=== PATIENT | male | born 2000 | race African-American/Black ===

== ENCOUNTER 2023-02-24 09:32 | Emergency (ER) | payer SELFPAY ==
[~2023-02-24] VITALS: Ht 180.3 cm; Wt 76.3 kg
[2023-02-24 09:33] VITALS: BP 147/93; PULSE 63; RESP 16; TEMP 98; O2SAT 100
[2023-02-24] MEDS ORDERED: LIDOcaine 1% 30ml preserv. free vial IJ ONE (10:05)
== END 2023-02-24 11:58 | disposition home or self-care (01) ==
LOC: ER 09:33
DX: S63.285A Dislocation of proximal interphalangeal joint of left ring finger, initial encounter (principal); X58.XXXA Exposure to other specified factors, initial encounter; Y93.89 Activity, other specified; Y92.89 Other specified places as the place of occurrence of the external cause; Y99.8 Other external cause status
CPT/HCPCS: 26770; 73130; 73140; 99284

== ENCOUNTER 2024-05-03 04:39 | Emergency (ER) | payer BC, OTHER ==
[~2024-05-03] VITALS: Ht 177.8 cm; Wt 82.7 kg
[2024-05-03 04:55] VITALS: BP 127/71; PULSE 88; TEMP 97.7; O2SAT 99
[2024-05-03 05:04] VITALS: RESP 16
[2024-05-03] MEDS ORDERED: CLIN-97 PO (05:04)
[2024-05-03] MEDS: ibuprofen tablet 400 MG TABLET PO ONE (05:15)
== END 2024-05-03 05:27 | disposition home or self-care (01) ==
LOC: ER 04:39
DX: S01.512A Laceration without foreign body of oral cavity, initial encounter (principal); F12.90 Cannabis use, unspecified, uncomplicated; Z72.89 Other problems related to lifestyle; Z88.1 Allergy status to other antibiotic agents; Y08.89XA Assault by other specified means, initial encounter; Y93.89 Activity, other specified; Y92.89 Other specified places as the place of occurrence of the external cause; Y99.8 Other external cause status
CPT/HCPCS: 99284